=== PATIENT | male | born 1960 | race Caucasian/White ===

== ENCOUNTER 2022-09-11 20:28 | Observation (INO) | payer BC, OTHER ==
[2022-09-11 21:21] LABS: #Eosinphils 0.3 thou/uL (0.0-0.7); #Lymphocytes 2.5 thou/uL (1.20-3.40); #Monocytes 1.1 thou/uL (0.11-0.59); #Neutrophils 4.6 thou/uL (1.40-6.50); %Basophils 0.5 % (0.0-1.0); %Eosinophils 3.6 % (0.0-10.0); %Lymphocytes 29.1 % (21.0-51.0); %Monocytes 12.9 % (0.0-10.0); %Neutrophils 53.9 % (42.0-75.0); Hemoglobin 15.8 g/dL (14.0-18.0); Mean Corpuscular HGB CONC 33.5 g/dL (32.0-36.0); Mean Corpuscular Hemoglobin 30.8 pg (27.0-31.0); Mean Platelet Volume 9.1 fL (7.4-10.4); Platelet Count 238 10x3/uL (130-400); RBC Distribution Width 11.2 % (11.5-14.5); Red Blood Cell (RBC) Count 5.13 mill/uL (4.70-6.10); White Blood Cell (WBC) Count 8.5 10x3/uL (4.8-10.8)
[2022-09-11 21:42] LABS: ALT (SGPT) 11 U/L (8-55); AST (SGOT) 19 U/L (5-34); Albumin 4.2 g/dL (3.4-4.8); Alkaline Phosphatase 47 U/L (40-110); Anion Gap 11 mmol/L (10-20); BUN (Urea Nitrogen) 15 mg/dL (8.4-25.7); Bilirubin, Total 0.5 mg/dL (0.2-1.2); Calc. Creatinine Clearance 0 mL/min (70-130); Calcium 9.3 mg/dL (7.8-10.44); Carbon Dioxide 25 mmol/L (23-31); Chloride 103 mmol/L (98-107); Estimated GFR 81; Globulin 3.1 g/dL (2.4-3.5); Glucose 95 mg/dL (80-115); Potassium 4.3 mmol/L (3.5-5.1); Protein, Total 7.3 g/dL (5.8-8.1); Sodium 135 mmol/L (136-145)
[2022-09-11 23:26] LABS: Bilirubin Negative (Negative); Blood, Urine Negative (Negative); Clarity Clear (Clear); Glucose, Urine (Dipstick) Normal (Negative); Ketone, Urine Negative (Negative); Leukocyte Negative Leu/uL (Negative); Nitrite Negative (Negative); Protein, Urine (Dipstick) Negative (Neg-Trace); Specific Gravity, Urine 1.025 (1.002-1.036); Urobilinogen Normal mg/dL (Less than 2)
[2022-09-12] MEDS ORDERED: Guaifenesin DM 100-10/5 ML UDCUP PO PRN (01:31)
[2022-09-12] MEDS ORDERED: Ondansetron ODT 4 MG TAB PO PRN (01:31)
[2022-09-12] MEDS ORDERED: Senokot S 8.6-50 MG TAB PO PRN (01:31)
[2022-09-12] MEDS ORDERED: Bisacodyl 10 MG SUPP PR PRN (01:31)
[2022-09-12] MEDS ORDERED: Ondansetron PF 4 MG/2 ML Vial IVP PRN (01:31)
[2022-09-12] MEDS ORDERED: Bisacodyl 5 MG TAB PO PRN (01:31)
[2022-09-12] MEDS ORDERED: Acetaminophen 650 MG Suppository PR PRN (01:31)
[2022-09-12] MEDS ORDERED: Acetaminophen 325 MG TAB PO PRN (01:31)
[2022-09-12 03:15] VITALS: BMI 39.2
[2022-09-12 05:17] LABS: SARS-CoV-2 NAA Rapid Test DETECTED (NotDetected)
[2022-09-12] MEDS: Losartan 25 MG TAB PO SCH (08:53)
[2022-09-12] MEDS: Aspirin 81 mg Enteric Coated Tablet PO SCH (08:54)
[2022-09-12] MEDS: Atorvastatin Calcium 10 MG TAB PO SCH (08:54)
[2022-09-12] MEDS: Fluticasone Propionate Nasal Spray 16 gm Bottle NASAL SCH (08:54)
[2022-09-12] MEDS: Amlodipine 5 MG TAB PO SCH (08:54)
[2022-09-12] MEDS: Benzonatate 100 MG CAP PO PRN ×2 (09:09→20:40)
[2022-09-12] MEDS ORDERED: Donepezil HCl 10 MG TAB PO SCH (21:00)
[2022-09-13 05:29] LABS: #Eosinphils 0.3 thou/uL (0.0-0.7); #Lymphocytes 2.5 thou/uL (1.20-3.40); #Monocytes 0.9 thou/uL (0.11-0.59); #Neutrophils 4.2 thou/uL (1.40-6.50); %Basophils 0.3 % (0.0-1.0); %Eosinophils 3.8 % (0.0-10.0); %Lymphocytes 31.7 % (21.0-51.0); %Monocytes 11.5 % (0.0-10.0); %Neutrophils 52.7 % (42.0-75.0); Mean Corpuscular HGB CONC 33.8 g/dL (32.0-36.0); Mean Corpuscular Hemoglobin 30.9 pg (27.0-31.0); Mean Corpuscular Volume 91.4 fl (78.0-98.0); Mean Platelet Volume 9.2 fL (7.4-10.4); Platelet Count 207 10x3/uL (130-400); White Blood Cell (WBC) Count 7.9 10x3/uL (4.8-10.8)
[2022-09-13 05:54] LABS: ALT (SGPT) 15 U/L (8-55); AST (SGOT) 17 U/L (5-34); Alkaline Phosphatase 43 U/L (40-110); Anion Gap 11 mmol/L (10-20); BUN (Urea Nitrogen) 15 mg/dL (8.4-25.7); Bilirubin, Total 0.7 mg/dL (0.2-1.2); Calc. Creatinine Clearance 138 mL/min (70-130); Calcium 8.6 mg/dL (7.8-10.44); Carbon Dioxide 27 mmol/L (23-31); Chloride 102 mmol/L (98-107); Estimated GFR 97; Globulin 3.1 g/dL (2.4-3.5); Glucose 95 mg/dL (80-115); Phosphorus 3.6 mg/dL (2.3-4.7); Potassium 4.4 mmol/L (3.5-5.1); Protein, Total 7.1 g/dL (5.8-8.1); Sodium 136 mmol/L (136-145)
[2022-09-13] MEDS ORDERED: Spironolactone 25 MG TAB PO SCH (08:15)
[2022-09-13] MEDS: Benzonatate 100 MG CAP PO PRN (09:03)
[2022-09-13] MEDS: Aspirin 81 mg Enteric Coated Tablet PO SCH (09:03)
[2022-09-13] MEDS: Amlodipine 5 MG TAB PO SCH (09:03)
[2022-09-13] MEDS: Losartan 25 MG TAB PO SCH (09:04)
[2022-09-13] MEDS: Fluticasone Propionate Nasal Spray 16 gm Bottle NASAL SCH (09:05)
[2022-09-13] MEDS: Atorvastatin Calcium 10 MG TAB PO SCH (09:05)
[2022-09-13 15:55] VITALS: BP 122/70; TEMP 98.1
[2022-09-14] MEDS ORDERED: Spironolactone 25 MG TAB PO SCH (08:00)
== END 2022-09-13 17:44 | disposition home or self-care (01) ==
LOC: ERS 20:28 → ERHOLD 09-12 01:22 → 2SW 09-12 02:11
PROVIDERS: ADMIT Internal Medicine; ATTEND Internal Medicine
DX: R55 Syncope and collapse (principal); U07.1 COVID-19; M47.812 Spondylosis without myelopathy or radiculopathy, cervical region; I10 Essential (primary) hypertension; G31.89 Other specified degenerative diseases of nervous system; F02.80 Dementia in other diseases classified elsewhere, unspecified severity, without behavioral disturbance, psychotic disturbance, mood disturbance, and anxiety; H54.7 Unspecified visual loss; J44.9 Chronic obstructive pulmonary disease, unspecified; G47.33 Obstructive sleep apnea (adult) (pediatric); M19.011 Primary osteoarthritis, right shoulder; I65.23 Occlusion and stenosis of bilateral carotid arteries; I73.9 Peripheral vascular disease, unspecified; E78.00 Pure hypercholesterolemia, unspecified; I08.3 Combined rheumatic disorders of mitral, aortic and tricuspid valves; Z87.891 Personal history of nicotine dependence; Z79.82 Long term (current) use of aspirin; Z79.899 Other long term (current) drug therapy; Z88.6 Allergy status to analgesic agent; Z91.013 Allergy to seafood; Z91.030 Bee allergy status; Z91.041 Radiographic dye allergy status; Z95.820 Peripheral vascular angioplasty status with implants and grafts; W19.XXXA Unspecified fall, initial encounter
CPT/HCPCS: 36415; 70450; 71045; 72125; 80053; 81003; 83735; 83880; 84100; 84484; 85025; 93005; 93306; 93880; 96372; G0378; J1650; U0002

== ENCOUNTER 2022-10-30 09:30 | Outpatient (CLI) | payer BC | END 2022-10-30 09:31 | disposition home or self-care (01) | LOC: PET 09:30 | PROVIDERS: ATTEND Psychiatry & Neurology Neurology | DX: G31.9 Degenerative disease of nervous system, unspecified (principal); F02.80 Dementia in other diseases classified elsewhere, unspecified severity, without behavioral disturbance, psychotic disturbance, mood disturbance, and anxiety; H54.7 Unspecified visual loss | CPT/HCPCS: 78803; A9552 ==